=== PATIENT | male | born 1980 ===

== ENCOUNTER 2023-12-22 11:04 | Outpatient (CLI) | payer OTHER, SELFPAY ==
--- NOTE | ~2023-12-22 | MR_ITS ---
MRI of the right elbow Clinical history: Distal biceps tendon rupture TECHNIQUE: Proton-density and proton-density fat-sat imaging was performed in the axial, coronal, and sagittal planes. FINDINGS: Ulnar collateral ligament is intact. Radial collateral ligament and the lateral ulnar colla teral ligament are intact. There is minimal tendinosis at the common flexor tendon origin. Common ext ensor tendon origin is intact. Bone marrow signals are unremarkable. No joint effusion. No osseous or articular abnormality seen at the elbow. There is complete rupture of the distal biceps tendon from its radial insertion, with retraction of t he tendon by at least 11 cm. There is soft tissue edema fluid surrounding the retracted tendon, which is wavy morphology. There is possible associated low-grade tear of the distal myotendinous junction region of the biceps muscle belly. There is extensive anterior subcutaneous soft tissue edema. Brachi melissa and triceps tendons are intact. IMPRESSION: Complete rupture of the distal biceps tendon with retraction by at least 11 cm. Extensive chronic sof t tissue edema and fluid. Possible associated low-grade partial tear at the myotendinous junction region of the biceps muscle b faina distally. Minimal tendinosis of the common flexor tendon origin. Reviewed, dictated and finalized at location . IMPRESSION: Complete rupture of the distal biceps tendon with retraction by at least 11 cm. Extensive chronic soft tissue edema and fluid. Possible associated low-grade partial tear at the myotendinous junction region of the biceps muscle belly distally. Minimal tendinosis of the common flexor tendon origin.
== END 2023-12-22 11:05 ==
LOC: GOSHIMG 11:07
PROVIDERS: PCP Orthopaedic Surgery; Visit Provider Orthopaedic Surgery
DX: S46.211A Strain of muscle, fascia and tendon of other parts of biceps, right arm, initial encounter (principal); X58.XXXA Exposure to other specified factors, initial encounter
CPT/HCPCS: 73221